=== PATIENT | male | born 1945 | race Caucasian/White ===

== ENCOUNTER 2022-04-13 13:29 | Inpatient (IN) | payer OTHER ==
[~2022-04-13] VITALS: Ht 188 cm; Wt 90.3 kg
[2022-04-13] MEDS ORDERED: MORPHINE SULFATE 4 MG/ML SYR/VIAL IV ONE (13:45)
[2022-04-13] MEDS ORDERED: HEPARIN 1,000 UNITS/ml 1ML VIAL IV ONE (13:45)
[2022-04-13] MEDS ORDERED: ANGIOMAX 250 MG VIAL IV ONE (13:59)
[2022-04-13] MEDS ORDERED: MIDAZOLAM HCL 2MG/2ML 2ml VIAL (1mg/ml) ONE (14:00)
[2022-04-13] MEDS ORDERED: fentaNYL CITRATE 100 MCG/2 ML VL ONE (14:00)
[2022-04-13] MEDS ORDERED: SODIUM CHL 0.9% 50 ML ONE (14:00)
[2022-04-13] MEDS ORDERED: IOHEXOL 350 MG/ML 100ML IJ ONE (14:01)
[2022-04-13 14:05] LABS: Basophils # (auto) 0 10 ^3/uL (0-0.2); Basophils % (auto) 0.5 % (0.0-2.0); Eosinophils # (auto) 0.2 10 ^3/uL (0-0.8); Eosinophils % (auto) 3.5 % (0.0-7.0); Hematocrit 45.1 % (41.0-53.0); Hemoglobin 14.9 g/dL (13.5-17.5); Lymphocytes # (auto) 1.2 10 ^3/uL (0.4-5.4); Lymphocytes % (auto) 21.2 % (10.0-50.0); Mean Corpuscular Hemoglobin 30.2 pg (28.0-32.0); Mean Corpuscular Volume 91.6 fL (80.0-100.0); Monocytes # (auto) 0.4 10 ^3/uL (0-1.3); Monocytes % (auto) 6.4 % (0.0-12.0); Neutrophils # (auto) 3.9 10 ^3/uL (1.6-8.6); Neutrophils % (auto) 68.4 % (37.0-80.0); Nucleated Red Blood Cells % 0.1 %; Red Blood Cells 4.93 10^6/uL (4.5-5.90); Red Cell Distribution Width 14.2 % (11.8-14.3); White Blood Cell 5.7 10^3/uL (4.4-10.8)
[2022-04-13] MEDS ORDERED: DOCUSATE SOD 100 MG CAP PO PRN (14:15)
[2022-04-13] MEDS ORDERED: HYDROcodone-ACET 5/325MG TAB PO PRN (14:15)
[2022-04-13] MEDS ORDERED: MORPHINE SULFATE INJ 2 MG/ml SYRG IV PRN ×3 (14:15→15:00)
[2022-04-13] MEDS ORDERED: NITROGLYCERIN 0.4 MG SL TAB SL PRN ×2 (14:15→15:00)
[2022-04-13] MEDS ORDERED: ACETAMINOPHEN 325 MG TAB PO PRN (14:15)
[2022-04-13] MEDS ORDERED: ONDANSETRON HCL 4 MG/2 ML VIAL IV PRN (14:15)
[2022-04-13 14:17] LABS: Albumin 3.4 g/dL (3.4-5.0); BUN/Creatinine Ratio 21.3; Calcium 8.4 mg/dL (8.5-10.1); Magnesium 2.2 mg/dL (1.6-2.6); Potassium 4.3 mmol/L (3.5-5.1)
[2022-04-13 14:20] LABS: Bilirubin, Total 0.5 mg/dL (0.2-1.0); Total Protein 6.2 g/dL (6.4-8.2)
[2022-04-13] MEDS ORDERED: ATROPINE SULF 1 MG/10ml SYR ONE (14:28)
[2022-04-13] MEDS ORDERED: EPINEPHrine HCL 1 MG/10 ML SYRG ONE (14:29)
[2022-04-13] MEDS ORDERED: TICAGRELOR 90 MG TAB ONE (14:39)
[2022-04-13 14:45] VITALS: BP 103/69
[2022-04-13 15:00] VITALS: BP 103/69
[2022-04-13 15:07] LABS: Cholesterol 149 mg/dL (< 200); HDL Cholesterol 50 mg/dL (40-59); LDL Cholesterol 90 mg/dL (< 100); Triglycerides 137 mg/dL (< 150)
[2022-04-13 15:15] VITALS: BP 103/68
[2022-04-13 15:30] VITALS: BP 102/70
[2022-04-13 16:51] VITALS: BP 117/75
[2022-04-13] MEDS: ATORVASTATIN 20 MG TAB PO SCH (21:58)
[2022-04-13 22:00] VITALS: BP 129/63
[2022-04-13] MEDS: SODIUM CHLORIDE 0.9% 1,000 ML IV SCH (22:06)
[2022-04-13] MEDS: TICAGRELOR 90 MG TAB PO SCH (22:47)
[2022-04-14 05:00] VITALS: BP 106/58
[2022-04-14] MEDS: SODIUM CHLORIDE 0.9% 1,000 ML IV SCH (06:46)
[2022-04-14 08:57] VITALS: BP 110/58
[2022-04-14] MEDS: ASPirin 81 mg TAB PO SCH (09:22)
[2022-04-14] MEDS: TICAGRELOR 90 MG TAB PO SCH ×2 (09:22→21:43)
[2022-04-14 10:26] LABS: Basophils # (auto) 0 10 ^3/uL (0-0.2); Eosinophils # (auto) 0 10 ^3/uL (0-0.8)
[2022-04-14 11:13] LABS: Basophils % (auto) 0.2 % (0.0-2.0); Eosinophils % (auto) 0.4 % (0.0-7.0); Hematocrit 45.1 % (41.0-53.0); Lymphocytes # (auto) 0.7 10 ^3/uL (0.4-5.4); Lymphocytes % (auto) 9.5 % (10.0-50.0); Mean Corpuscular Hemoglobin 30.9 pg (28.0-32.0); Mean Corpuscular Volume 99.8 fL (80.0-100.0); Monocytes # (auto) 0.5 10 ^3/uL (0-1.3); Monocytes % (auto) 6.9 % (0.0-12.0); Neutrophils # (auto) 6.4 10 ^3/uL (1.6-8.6); Nucleated Red Blood Cells % 0.1 %; Red Blood Cells 4.52 10^6/uL (4.5-5.90); Red Cell Distribution Width 15.2 % (11.8-14.3); White Blood Cell 7.7 10^3/uL (4.4-10.8)
[2022-04-14 11:48] LABS: Anion Gap 6 (5-15); Blood Urea Nitrogen 27 mg/dL (7-18); Carbon Dioxide 29 mmol/L (21-32); Chloride 107 mmol/L (98-107); Glucose 96 mg/dL (74-106); Potassium 4.4 mmol/L (3.5-5.1); Sodium 142 mmol/L (136-145)
[2022-04-14 11:49] LABS: Alanine Aminotransferase 23 U/L (16-61); Albumin 2.9 g/dL (3.4-5.0); Alkaline Phosphatase 83 U/L (45-117); Aspartate Aminotransferase 43 U/L (15-37); BUN/Creatinine Ratio 28.7; Bilirubin, Total 1.2 mg/dL (0.2-1.0); Calcium 7.9 mg/dL (8.5-10.1); GFR African American 100 mL/min; GFR Non-African American 83 mL/min; Total Protein 5.3 g/dL (6.4-8.2)
[2022-04-14 13:00] VITALS: BP 105/61
[2022-04-14 17:17] VITALS: BP 106/61
[2022-04-14] MEDS: ATORVASTATIN 20 MG TAB PO SCH (21:43)
[2022-04-14 22:00] VITALS: BP 114/72
[2022-04-15 05:00] VITALS: BP 111/74
[2022-04-15 05:08] LABS: Basophils # (auto) 0 10 ^3/uL (0-0.2); Basophils % (auto) 0.4 % (0.0-2.0); Eosinophils # (auto) 0.1 10 ^3/uL (0-0.8); Eosinophils % (auto) 2.3 % (0.0-7.0); Hemoglobin 14.3 g/dL (13.5-17.5); Lymphocytes # (auto) 0.6 10 ^3/uL (0.4-5.4); Lymphocytes % (auto) 10.2 % (10.0-50.0); Mean Corpuscular Hemoglobin 30.9 pg (28.0-32.0); Mean Corpuscular Hgb Conc. 34.1 g/dL (32.0-36.0); Mean Corpuscular Volume 90.7 fL (80.0-100.0); Monocytes # (auto) 0.4 10 ^3/uL (0-1.3); Monocytes % (auto) 7.3 % (0.0-12.0); Neutrophils # (auto) 4.4 10 ^3/uL (1.6-8.6); Neutrophils % (auto) 79.8 % (37.0-80.0); Red Blood Cells 4.63 10^6/uL (4.5-5.90); Red Cell Distribution Width 13.9 % (11.8-14.3); White Blood Cell 5.6 10^3/uL (4.4-10.8)
[2022-04-15 05:32] LABS: Potassium 4.2 mmol/L (3.5-5.1)
[2022-04-15 05:41] LABS: Albumin 2.9 g/dL (3.4-5.0); BUN/Creatinine Ratio 22.3; Bilirubin, Total 0.9 mg/dL (0.2-1.0); Total Protein 5.3 g/dL (6.4-8.2)
[2022-04-15] MEDS: TICAGRELOR 90 MG TAB PO SCH (08:47)
[2022-04-15] MEDS: ASPirin 81 mg TAB PO SCH (08:47)
[2022-04-15 09:00] VITALS: BP 136/69
[2022-04-15] MEDS ORDERED: ENOXAPARIN SOD 40 MG/0.4 ML SYRINGE SC ONE (12:30)
[2022-04-15 13:00] VITALS: BP 104/65
[2022-04-15] MEDS ORDERED: ASPI-325 PO (13:28)
[2022-04-15] MEDS ORDERED: VALS1TAB56 PO (13:28)
[2022-04-15] MEDS ORDERED: TICA90TA PO ×3 (13:28→16:23)
[2022-04-15] MEDS ORDERED: ASPI-378 OR (14:27)
[2022-04-15] MEDS ORDERED: VALS40TA2 PO (14:28)
[2022-04-15 14:40] VITALS: BP 104/65
[2022-04-16] MEDS ORDERED: ENOXAPARIN SOD 40 MG/0.4 ML SYRINGE SC SCH (10:00)
== END 2022-04-15 15:50 | disposition home or self-care (01) | DRG 247 ==
LOC: ER 13:29 → TELE 14:09 → TELE-CENTR 15:58
PROVIDERS: ADMIT Family Medicine; ATTEND Student in an Organized Health Care Education/Training Program
PROC: 027035Z Dilation of Coronary Artery, One Artery with Two Drug-eluting Intraluminal Devices, Percutaneous Approach (ICD-10-PCS; principal; 2022-04-13)
PROC: B211YZZ Fluoroscopy of Multiple Coronary Arteries using Other Contrast (ICD-10-PCS; 2022-04-13)
DX: I21.19 ST elevation (STEMI) myocardial infarction involving other coronary artery of inferior wall (principal); I25.10 Atherosclerotic heart disease of native coronary artery without angina pectoris; R00.1 Bradycardia, unspecified; R73.9 Hyperglycemia, unspecified; Z63.4 Disappearance and death of family member
CPT/HCPCS: 36415; 71045; 80053; 80061; 83036; 83735; 84443; 84484; 85025; 93005; 93306; 96374; 99152; C1874; C1887; G0378; J2250; J2405